=== PATIENT | female | born 1965 | race Caucasian/White ===

== ENCOUNTER 2020-09-16 09:38 | Emergency (ER) | payer SELFPAY ==
[~2020-09-16] VITALS: Ht 172.7 cm; Wt 90.6 kg
--- NOTE | 2020-09-16 09:47 | NUR ---
nil called x1 as
[2020-09-16 09:52] VITALS: BP 128/63
--- NOTE | 2020-09-16 10:53 | NUR ---
NO ANSWER TO RM AT THIS TIME
--- NOTE | 2020-09-16 11:08 | NUR ---
NO ANSWER TO RM AT THIS TIME
--- NOTE | 2020-09-16 11:20 | NUR ---
NO ANSWER TO RM AT THIS TIME
== END 2020-09-16 11:21 | disposition left against medical advice (07) ==
LOC: ED 09:45
DX: H57.89 Other specified disorders of eye and adnexa (principal); Z53.21 Procedure and treatment not carried out due to patient leaving prior to being seen by health care provider

== ENCOUNTER 2020-09-17 06:21 | Emergency (ER) | payer SELFPAY ==
[~2020-09-17] VITALS: Ht 172.7 cm; Wt 92.4 kg
--- NOTE | 2020-09-17 06:50 | NUR ---
INITIAL PT CONTACT. PT PRESENTS TO ED C/O GENERALIZED RASH, GENERALIZED CP, SOB, "YEAST INFECTION" AND WANTING TO GET CAUGHT UP ON ALL THE MEDICAL STUFF I HAVE PROCRASTINATED LIKE MY PAP SMEAR AND MAMMOGRAM". PT STATES THE RASH BEGAN AFTER TAKING ABX FOLLOWING A ROOT CANNAL. NAD, VSS. RESPIRATIONS REGULAR AND NON LABORED. PT PLACED ON CONTINUOUS PULSE OX AND CARDIAC MONITORING. PERSONAL BELONGINGS AND CALL LIGHT WITHIN REACH. BED IN LOWEST POSITION. WILL CONTINUE TO MONITOR.
[2020-09-17 06:58] VITALS: BP 114/51
[2020-09-17 07:10] LABS: BASOPHILS % (AUTO) 0 % (0-1); EOSINOPHILS % (AUTO) 0 % (1-7); LYMPHOCYTES % (AUTO) 22 % (22-44); MEAN CORPUSCULAR HEMOGLOBIN 28.2 pg (27.0-34.8); MEAN CORPUSCULAR HGB CONC 32.8 g/dL (32.4-35.8); MONOCYTES % (AUTO) 3 % (2-9); NEUTROPHILS % (AUTO) 75 % (42-75); PLATELET COUNT 271 x10^3/uL (130-400); RED BLOOD COUNT 4.28 x10^6/uL (3.82-5.3); RED CELL DISTRIBUTION WIDTH 14.2 % (9.6-15.2)
[2020-09-17 07:11] LABS: MD NO
[2020-09-17 07:19] LABS: ALANINE AMINOTRANSFERASE 58 U/L (12-78); ALBUMIN 2.4 g/dL (3.4-5.0); ANION GAP 10 mmol/L (5-15); CALCIUM 7.8 mg/dL (8.5-10.1); CHLORIDE 109 mmol/L (98-107); CREATININE 0.59 mg/dL (0.55-1.02)
[2020-09-17 07:24] LABS: ALKALINE PHOSPHATASE 98 U/L (45-117); BILIRUBIN,TOTAL 0.3 mg/dL (0.2-1.0); TOTAL PROTEIN 5.5 g/dL (6.4-8.2); TROPONIN I < 0.015 ng/mL (0.000-0.045)
[2020-09-17 07:35] LABS: MICROSCOPIC INDICATED
--- NOTE | 2020-09-17 08:19 | NUR ---
Patient given discharge instructions and Rx, pt refused DC VS- Dr Carrillo aware, pt confirmed that they understand the instructions. Patient ambulatory with steady gait.
== END 2020-09-17 08:21 | disposition home or self-care (01) ==
LOC: ED 07:26
DX: R60.0 Localized edema (principal); R07.89 Other chest pain; R06.02 Shortness of breath; M79.89 Other specified soft tissue disorders
CPT/HCPCS: 36415; 71045; 80053; 81001; 83880; 84443; 84484; 85025; 93005; 99285